=== PATIENT | female | born 1945 | race Caucasian/White ===

== ENCOUNTER → 2018-02-08 | Outpatient (CLI) | payer MEDICARE ==
--- NOTE | 2018-02-08 08:32 | Diagnostic Imaging Report ---
PROCEDURE:X-RAY ABDOMEN - KUB COMPARISON:None. INDICATIONS:URINARY TRACT INFECTION FINDINGS: There is a non-obstructed bowel-gas pattern. There is a 1.1 cm rounded well circumscribed calcification overlying the gallbladder and right upper pole kidney. There are no other calcifications projected over the renal shadows, expected course of the ureters or bladder. A calcified fibroid is noted. There are no acute osseous abnormalities. Degenerative changes of the visualized spine. The lung bases are clear. CONCLUSION: A 1.1 cm rounded calcification is felt to more likely represent a gallstone rather than right upper pole renal stone, but can be further assessed on planned renal ultrasound today. Dictated by: BRIAN GARCIA M.D. on 02/08/2018 at 8:41 Electronically approved by: BRIAN GARCIA M.D. on 02/08/2018 at 8:41
--- NOTE | 2018-02-08 09:04 | Diagnostic Imaging Report ---
PROCEDURE:US RETROPERITONEAL ( KIDNEY ). COMPARISON:None. INDICATIONS:uti TECHNIQUE: Hernandez-scale and color sonographic images of the bilateral kidneys and bladder where obtained in transverse and longitudinal planes. FINDINGS: RIGHT KIDNEY: 11.6 x 6.2 x 4.8 cm, cortex 1.5 cm Cysts: None Solid masses: None Stones: None Hydronephrosis: None Echogenicity: Unremarkable LEFT KIDNEY: 12.6 x 4.8 x 5 cm, cortex 1.5 cm Cysts: None Solid masses: None Stones: None Hydronephrosis: None Echogenicity: Unremarkable Bladder: Unremarkable. Bilateral ureteral jets are seen. CONCLUSION: Unremarkable renal ultrasound. No evidence of stone. Dictated by: BRIAN GARCIA M.D. on 02/08/2018 at 9:13 Electronically approved by: BRIAN GARCIA M.D. on 02/08/2018 at 9:13
== END ==
LOC: US 07:42
PROVIDERS: ATTEND Urology
DX: N39.0 Urinary tract infection, site not specified (principal)
CPT/HCPCS: 74018; 76770

== ENCOUNTER → 2018-12-06 | Outpatient (CLI) | payer MEDICARE ==
--- NOTE | 2018-12-06 09:39 | Diagnostic Imaging Report ---
Exam: KUB Clinical history: UTI Findings: There is no evidence of radiopaque stones overlying the region of bilateral renal shadows. A subcentimeter round calcific density overlies the right upper pelvis most consistent with phleboliths. There is nonobstructive bowel gas pattern with retained feces in the ascending colon. Degenerative changes are noted throughout the lumbar spine with marginal osteophytes. Impression: 1. No radiographic evidence of nephrolithiasis. Signed by: Dr. Serge Noyola MD on 12/06/2018 9:36 AM
--- NOTE | 2018-12-06 10:24 | Diagnostic Imaging Report ---
EXAM: US RENAL RETROPERITONEAL COMP DATE: 12/06/2018 8:51 AM INDICATION: UTI COMPARISON: February 08, 2018 TECHNIQUE: Transverse and longitudinal krueger scale and color doppler sonographic images of the upper abdomen were obtained. FINDINGS: RIGHT KIDNEY: 11.4 cm Echogenicity: Normal Collecting System: No hydronephrosis Stones: None Cyst/Mass: None LEFT KIDNEY: 11.1 cm Echogenicity: Normal Collecting System: No hydronephrosis Stones: None Cyst/Mass: None BLADDER: No abnormality seen. FREE FLUID: None IMPRESSION: 1. Unremarkable renal ultrasound. Signed by: Dr. Serge Noyola MD on 12/06/2018 10:21 AM
== END ==
LOC: US 08:38
PROVIDERS: ATTEND Urology
DX: N39.0 Urinary tract infection, site not specified (principal)
CPT/HCPCS: 74018; 76770

== ENCOUNTER → 2020-04-09 | Outpatient (CLI) | payer MEDICARE | LOC: DX 10:27 | PROVIDERS: ATTEND Family Medicine | DX: M85.88 Other specified disorders of bone density and structure, other site (principal); Z78.0 Asymptomatic menopausal state | CPT/HCPCS: 77080 ==